=== PATIENT | male | born 1960 | race Caucasian/White ===

== ENCOUNTER 2018-07-07 16:20 | Emergency (ER) | payer OTHER ==
[~2018-07-07] VITALS: Ht 157.5 cm; Wt 53.5 kg
[2018-07-07] MEDS ORDERED: MEDROLDOSEPACK PO (17:43)
[2018-07-07] MEDS ORDERED: ROBAXIN 750 MG750 M1 PO (17:43)
[2018-07-07] MEDS ORDERED: NABUMETONE 750750 M1 PO (17:43)
[2018-07-07 18:06] VITALS: BP 154/86
== END 2018-07-07 18:06 | disposition home or self-care (01) ==
LOC: M.ERS 16:20
DX: M48.061 Spinal stenosis, lumbar region without neurogenic claudication (principal); M54.16 Radiculopathy, lumbar region; X58.XXXA Exposure to other specified factors, initial encounter; Y93.89 Activity, other specified; Y92.89 Other specified places as the place of occurrence of the external cause; Y99.8 Other external cause status